=== PATIENT | female | born 1980 | race Caucasian/White ===

== ENCOUNTER 2021-05-13 05:23 | Day surgery (SDC) | payer BC ==
[2021-05-08 11:26] VITALS: BMI 50.1
[2021-05-13] MEDS ORDERED: IBUPROFEN 400 MG TABLET (FP) PO PRN (06:13)
[2021-05-13] MEDS ORDERED: oxyCODONE HCL 5 MG TABLET PO PRN ×2 (06:13→12:04)
[2021-05-13] MEDS ORDERED: ACETAMINOPHEN 325 MG TABLET (FP) PO PRN (06:13)
[2021-05-13] MEDS ORDERED: ONDANSETRON 4 MG/2 ML VIAL IVPUSH PRN ×2 (06:14→12:04)
[2021-05-13] MEDS ORDERED: MIDAZOLAM HCL 2 MG/2 ML SINGLE DOSE VIAL ONE ×3 (10:31→10:44)
[2021-05-13] MEDS ORDERED: PROPOFOL 20 ML ONE (11:09)
[2021-05-13] MEDS ORDERED: PROMETHAZINE HCL 25 MG/1 ML VIAL IVPB PRN (12:04)
[2021-05-13 12:51] VITALS: TEMP 97.1
[2021-05-13 13:57] VITALS: BP 153/43; PULSE 100
== END 2021-05-13 14:00 | disposition home or self-care (01) ==
LOC: JASU-SURG 05:23
PROVIDERS: ATTEND Obstetrics & Gynecology
PROC: 0UDB7ZX Extraction of Endometrium, Via Natural or Artificial Opening, Diagnostic (ICD-10-PCS; principal; 2021-05-13 10:00)
PROC: 0UJD8ZZ Inspection of Uterus and Cervix, Via Natural or Artificial Opening Endoscopic (ICD-10-PCS; 2021-05-13 10:00)
DX: N93.8 Other specified abnormal uterine and vaginal bleeding (principal)
CPT/HCPCS: 81025; 86850; 86900; 86901; 88305-TC; 94760